=== PATIENT | female | born 1995 | race African-American/Black ===

== ENCOUNTER 2019-01-27 10:40 | Emergency (ER) | payer MEDICAID ==
[~2019-01-27] VITALS: Ht 160 cm; Wt 43.1 kg
[2019-01-27 10:50] VITALS: BP 109/57
[2019-01-27] MEDS ORDERED: DOCUSATE SODIUM LIQ 100 MG/10 ML UDC XX ONE (11:00)
[2019-01-27] MEDS ORDERED: DOCUSATE SODIUM LIQ 100 MG/10 ML UDC ONE (11:15)
== END 2019-01-27 11:50 | disposition home or self-care (01) ==
LOC: ER 10:45
DX: H61.22 Impacted cerumen, left ear (principal); Z88.0 Allergy status to penicillin
CPT/HCPCS: 69209; 99282; A6402

== ENCOUNTER 2022-04-22 16:02 | Emergency (ER) | payer MEDICAID, OTHER ==
[~2022-04-22] VITALS: Ht 160 cm; Wt 54.4 kg
[2022-04-22 16:50] VITALS: BP 127/60
--- NOTE | 2022-04-22 19:33 | NUR ---
CALLED TO BE ROOM BUT PT IS NOT IN WAITING ROOM.
== END 2022-04-22 19:34 | disposition home or self-care (01) ==
LOC: ER 16:07
DX: Z53.21 Procedure and treatment not carried out due to patient leaving prior to being seen by health care provider (principal)